=== PATIENT | female | born 1965 | race Caucasian/White ===

== ENCOUNTER 2024-12-11 00:11 | Emergency (ER) | payer OTHER ==
[~2024-12-11] VITALS: Ht 162.6 cm; Wt 57.3 kg
[2024-12-11 00:11] VITALS: BP 105/86; PULSE 116; RESP 16; TEMP 98.2; O2SAT 96
--- NOTE | 2024-12-11 00:29 | ED.PDOC ---
Back pain HPI HPI Comments PT PRESENTS FOR CC OF L HAND PAIN X 1 MONTH. HAND APPEARS PALE, FEELS COOL, AND HAS DELAYED CAPILLARY REFILL. HX OF SMOKING. Time Seen by MD: 00:15 Reviewed Notes: Nurses Notes, Medications, Allergies Allergies: Coded Allergies: NO KNOWN ALLERGIES (Unverified , 12/11/24) Past Medical History PAST MEDICAL HISTORY: Denies Surgical History: Denies all surgeries PATROL CONDUCTOR History: No Pertinent PATROL CONDUCTOR History Family History Family History: Reviewed,noncontributory to illness Social History Smoker: Cigarettes Alcohol: Denies ETOH Use Drugs: Denies Drug Use Constitutional: denies: chills, diaphoresis, fatigue, fever, malaise, sweats, weakness, others EENTM: denies: blurred vision, double vision, ear bleeding, ear discharge, ear drainage, ear pain, ear ringing, eye pain, eye redness, hearing loss, mouth pain, mouth swelling, nasal discharge, nose bleeding, nose congestion, nose pain, photophobia, tearing, throat pain, throat swelling, voice changes, others Respiratory: denies: cough, hemoptysis, orthopnea, SOB at rest, shortness of breath, SOB with excertion, stridor, wheezing, others Cardiovascular: denies: chest pain, dizzy spells, diaphoresis, Dyspnea on exertion, edema, irregular heart beat, left arm pain, lightheadedness, palpitations, PND, syncope, others Gastrointestinal: denies: abdomen distended, abdominal pain, blood streaked bowels, constipated, diarrhea, dysphagia, difficulty swallowing, hematemesis, melena, nausea, poor appetite, poor fluid intake, rectal bleeding, rectal pain, vomiting, others Genitourinary: denies: abnormal vagina bleeding, burning, dyspareunia, dysuria, flank pain, frequency, hematuria, incontinence, pain, , vagina discharge, urgency, others Neurological: denies: dizziness, fainting, headache, left sided numbness, left sided weakness, numbness, paresthesia, pre-existing deficit, right sided numbness, right sided weakness, seizure, speech problems, tingling, tremors, weakness, others Musculoskeletal: reports: joint pain; denies: back pain, gout, muscle pain, muscle stiffness, neck pain, others Integumetry: reports: change in color (Left hand fingers); denies: bruises, change in hair/nails, dryness, laceration, lesions, lumps, rash, wounds, others Allergic/Immunocompromised: denies: Difficulty Healing, Frequent Infections, Hives, Itching, others Hematologic/Lymphatic: denies: anemia, blood clots, easy bleeding, easy bruising, swollen glands, others Endocrine: denies: excessive hunger, excessive sweating, excessive thirst, excessive urination, flushing, intolerance to cold, intolerance to heat, unexpl ained weight gain, unexplained weight loss, others Psychiatric: denies: anxiety, bipolar disorder, depression, hopeless, panic disorder, schizophrenia, sleepless, suicidal, others Physical Exam General Appearance: No Apparent Distress, Normal HEENT: Pharynx Normal Neck: Full Range of Motion, Non-Tender Respiratory: Lungs Clear, No Respiratory Distress, Normal Breath Sounds Cardiovascular: No Edema, No JVD, No Murmur, No Gallop, Normal Peripheral Pulses, Regular Rate/Rhythm Breast Exam: Deferred Gastrointestinal: No Organomegaly, Non Tender, No Pulsatile Mass, Normal Bowel Sounds, Soft Genitalia: Deferred Pelvic: Deferred Rectal: Deferred Extremities: Normal range of motion, Non-tender, No pedal edema, Slow capillary refill (2nd 3rd 4th and 5th digit distal aspect and cold to touch) Musculoskeletal : Apperance: Normal Neurologic: Alert, supervisor in charge II-XII nml as Tested, No Motor Deficits, Normal Affect, Normal Mood, No Sensory Deficits Cerebellar Function: Normal Reflexes: Normal Skin: Dry, Normal Color, Warm Peripheral Pulses: 4+ Radial (R), 4+ Radial (L) Lymphatic: No Adenopathy Was a procedure done? Was a procedure done?: No Back Pain Differential Dx Differential Diagnosis: Fracture, Musculoskeletal Pain, Strain X-Ray, Labs, Meds, VS Vital Signs Date Time Temp Pulse Resp B/P (MAP) Pulse Ox O2 Delivery O2 Flow Rate FiO2 12/11/24 00:11 98.2 116 16 105/86 (92) 96 98.2 Lab Test 12/11/24 00:45 Range/Units White Blood Count 6.3 4.4-10.8 10^3/uL Red Blood Count 3.58 L 4.0-5.20 10^6/uL Hemoglobin 9.6 L 12.2-16.2 g/dL Hematocrit 31.4 L 36.0-46.0 % Mean Corpuscular Volume 87.8 80.0-100.0 fL Mean Corpuscular Hemoglobin 26.8 L 28.0-32.0 pg Mean Corpuscular Hemoglobin Concent 30.6 L 32.0-36.0 g/dL Red Cell Distribution Width 22.1 H 11.8-14.3 % Platelet Count 217 140-450 10^3/uL Mean Platelet Volume 8.3 6.9-10.8 fL Neutrophils (%) (Auto) 66.7 37.0-80.0 % Lymphocytes (%) (Auto) 22.2 10.0-50.0 % Monocytes (%) (Auto) 8.3 0.0-12.0 % Eosinophils (%) (Auto) 2.5 0.0-7.0 % Basophils (%) (Auto) 0.3 0.0-2.0 % Neutrophils # (Auto) 4.2 1.6-8.6 10 ^3/uL Lymphocytes # (Auto) 1.4 0.4-5.4 10 ^3/uL Monocytes # (Auto) 0.5 0-1.3 10 ^3/uL Eosinophils # (Auto) 0.2 0-0.8 10 ^3/uL Basophils # (Auto) 0 0-0.2 10 ^3/uL Nucleated Red Blood Cells 0.3 % Sodium Level 140 136-145 mmol/L Potassium Level 3.2 L 3.5-5.1 mmol/L Chloride Level 107 98-107 mmol/L Carbon Dioxide Level 19 L 20-31 mmol/L Anion Gap 14 5-15 Blood Urea Nitrogen 10 9-23 mg/dL Creatinine 1.42 H 0.550-1.02 mg/dL Glomerular Filtration Rate Calc 42 >90 mL/min BUN/Creatinine Ratio 7.0 L 10.0-20.0 Serum Glucose 130 H 74-106 mg/dL Calcium Level 9.2 8.7-10.4 mg/dL Total Bilirubin 0.3 0.2-1.0 mg/dL Aspartate Amino Transferase (AST) 42 H 13-40 U/L Alanine Aminotransferase (ALT) 32 7-40 U/L Alkaline Phosphatase 90 46-116 U/L Total Protein 6.7 5.7-8.2 g/dL Albumin 4.0 3.2-4.8 g/dL X-Ray, Labs, Meds, VS Comment CBC shows anemia advised patient to increase her iron intake and continue with her iron supplement. Potassium 3.2 patient given 25 mEq potassium advised to increase her diet with potassium. Likely decreased circulation and fingers secondary to cigarette smoking possibly secondary to Raynaud's/. Advised patient to follow up with her PCP in 2 days for further workup, consider trying to calcium channel majo, advised to wear a glove in the left hand. Advised on smoking cessation. EKG within normal limits shows no ST-elevation or acute findings. ER return precautions given patient indicates understanding and agrees with discharge plan of care Time of 1ST Reevaluation: 00:28 Reevaluation 1ST: Unchanged Time of 2ND Reevaluation: 03:15 Reevaluation 2ND: Improved Patient Education/Counseling: Diagnosis, Treatment, Prognosis, Need For Follow Up Family Education/Counseling: No Family Present SEPSIS Sepsis Screen Vital Signs Date Time Temp Pulse Resp B/P (MAP) Pulse Ox O2 Delivery O2 Flow Rate FiO2 12/11/24 00:11 98.2 116 16 105/86 (92) 96 98.2 Laboratory Tests Test 12/11/24 00:45 White Blood Count 6.3 10^3/uL (4.4-10.8) Departure 1 Departure Time of Disposition: 03:14 Impression: Primary Impression: Decreased circulation in fingers or toes Disposition: 01 HOME / SELF CARE / HOMELESS Condition: Stable Discharged With: Self Critical Care Note Critical Care Time?: No Stability Stability form required: LALY Barbour Dec 11, 2024 00:29
[2024-12-11 00:59] LABS: Mean Corpuscular Hemoglobin 26.8 pg (28.0-32.0)
[2024-12-11 01:01] LABS: Hematocrit 31.4 % (36.0-46.0); Hemoglobin 9.6 g/dL (12.2-16.2); Mean Corpuscular Volume 87.8 fL (80.0-100.0); Nucleated Red Blood Cells % 0.3 %
[2024-12-11 02:08] LABS: Alanine Aminotransferase 32 U/L (7-40); Albumin 4.0 g/dL (3.2-4.8); Alkaline Phosphatase 90 U/L (46-116); Anion Gap 14 (5-15); BUN/Creatinine Ratio 7.0 (10.0-20.0); Blood Urea Nitrogen 10 mg/dL (9-23); Calcium 9.2 mg/dL (8.7-10.4); Carbon Dioxide 19 mmol/L (20-31); Chloride 107 mmol/L (98-107); Glucose 130 mg/dL (74-106); Potassium 3.2 mmol/L (3.5-5.1); Sodium 140 mmol/L (136-145); Total Protein 6.7 g/dL (5.7-8.2)
[2024-12-11 02:09] LABS: Bilirubin, Total 0.3 mg/dL (0.2-1.0)
[2024-12-11] MEDS ORDERED: HYDROcodone-ACET 5/325MG TAB PO ONE (03:15)
[2024-12-11] MEDS: POTASSIUM EFFERVESENT TAB 25 MEQ PO ONE (04:16)
[2024-12-11] MEDS: KETOROLAC TROMETH 60MG/2ML VIAL IM ONE (04:17)
--- NOTE | 2024-12-11 06:44 | ECG ---
[facility] Test Date: 2024-12-11 Test Time: 01:01:06 Pat Name: MAYNOR MASCORRO Department: ER Room: Gender: F [employer]: JUS : 1965 Requested By: LALY RAMIREZ Order Number: [id number] Reading MD: Geo Turner Measurements Intervals [place] Rate: 108 P: 70 PA: 137 QRS: 68 QRSD: 82 T: 86 QT: 363 QTc: 487 Interpretive Statements Sinus tachycardia Borderline prolonged QT interval Electronically Signed On 12-17-2024 15:34:50 PDT by Geo Turner Please click the below link to view image of tracing.
== END 2024-12-11 04:43 | disposition home or self-care (01) ==
LOC: ER 00:11
DX: I99.8 Other disorder of circulatory system (principal); F17.210 Nicotine dependence, cigarettes, uncomplicated
CPT/HCPCS: 36415; 80053; 85025; 93005; 96372; 99284; J1885